=== PATIENT | male | born 1980 | race Caucasian/White ===

== ENCOUNTER 2017-12-04 20:28 | Emergency (ER) | payer SELFPAY ==
[~2017-12-04] VITALS: Ht 177.8 cm; Wt 90.0 kg
[2017-12-04] MEDS ORDERED: AMLO5 PO (20:36)
[2017-12-04] MEDS ORDERED: HYDR25TA5 PO (20:36)
[2017-12-04 20:39] VITALS: BP 150/97; PULSE 70; RESP 24; TEMP 98.1; O2SAT 100
[2017-12-04] MEDS ORDERED: SODIUM CHLOR 0.9% 1000 ML INJ 1,000 ML IV SCH (20:42)
[2017-12-04] MEDS ORDERED: SODIUM CHLORIDE 0.9% FLUSH 10 ML FLUSH IV FLUSH PRN (20:45)
[2017-12-04 20:51] VITALS: RESP 20; O2SAT 98
--- NOTE | 2017-12-04 21:21 | PD ---
HPI Chief Complaint: Medical Clearance Time Seen by Provider: 21:00 Travel History International Travel<30 days: No Contact w/Intl Traveler<30days: No Traveled to known affect area: No History of Present Illness HPI 37-year-old male with PMH of IV methamphetamine abuse, hypertension presents to the ED via EMS for altered mental status. According to EMS report the patient was found lying on his neighbors front step, crying. On presentation the patient complains of shortness of breath, sore throat, and bilateral lower leg pain. He states that his last amphetamine use was this morning. He states that he is unsure of the course of events during the day but states that he has been "walking and walking" all day long. He denies fever, chills, cold or flu symptoms, neck pain, chest pain, abdominal pain, nausea, vomiting. He endorses back pain which he attributes to lying on the ground this afternoon. Denies lower extremity weakness. Denies suicidal ideation. States that he wants to quit using drugs. He is a current smoker. Denies alcohol use. PFSH Past Medical History Arthritis: Yes Diminished Hearing: No Hypertension: Yes (UNDIAGNOSED BUT PT STATES HIS PRESSURE USUALLY RUNS 160S/80- 90S) Immune Disorder: Yes (lupus) Tetanus Vaccination: > 5 Years Influenza Vaccination: No Past Surgical History Cholecystectomy: Yes Social History Alcohol Use: No Tobacco Use: Yes (1pk) Substance Use: Yes (IV HEROIN, IV DILAUDID, OPIATES) Allergies-Medications (Allergen,Severity, Reaction): Coded Allergies: morphine (Unverified Adverse Reaction, Severe, 12/04/17) chest pain Reported Meds & Prescriptions Reported Meds & Active Scripts Active Reported Hydrochlorothiazide 25 Mg Tab 25 Mg PO BID Norvasc (Amlodipine Besylate) 5 Mg Tab 5 Mg PO DAILY Review of Systems Except as stated in HPI: all other systems reviewed are Neg Physical Exam Narrative GENERAL: Well-nourished, well-developed tearful, hyperventilating white male in no acute distress. SKIN: Warm and dry. HEAD: Normocephalic. Atraumatic. EYES: No scleral icterus. No injection or drainage. PERRLA. EOMI. ENT: Pearly watson tympanic membranes bilaterally. Nasal mucosa is moist. Oropharynx without erythema, edema or exudate. Uvula midline. Airway patent. NECK: Supple, trachea midline. No JVD or lymphadenopathy. CARDIOVASCULAR: Regular rate and rhythm without murmurs, gallops, or rubs. RESPIRATORY: Breath sounds clear and equal bilaterally. No accessory muscle use. GASTROINTESTINAL: Abdomen soft, non-tender, nondistended. + Bowel sounds MUSCULOSKELETAL: No cyanosis, or edema. Full, active range of motion. Strength 5/5. Neurovascularly intact. Homans sign negative bilaterally. BACK: Nontender without obvious deformity. No CVA tenderness. Data Data Last Documented VS Vital Signs Date Time Temp Pulse Resp B/P (MAP) Pulse Ox O2 Delivery O2 Flow Rate FiO2 12/04/17 20:51 20 98 Room Air 12/04/17 20:39 98.1 70 150/97 (114) Orders Orders Complete Blood Count With Diff (12/04/17 20:42) Comprehensive Metabolic Panel (12/04/17 20:42) Creatine Kinase (Cpk) (12/04/17 20:42) Urinalysis - C+S If Indicated (12/04/17 20:42) Blood Glucose (12/04/17 20:42) Ecg Monitoring (12/04/17 20:42) Iv Access Insert/Monitor (12/04/17 20:42) Oximetry (12/04/17 20:42) Sodium Chloride 0.9% Flush (Ns Flush) (12/04/17 20:45) Sodium Chlor 0.9% 1000 Ml Inj (Ns 1000 M (12/04/17 20:42) Drug Screen, Random Urine (12/04/17 20:42) Alcohol (Ethanol) (12/04/17 20:42) Electrocardiogram (12/04/17 ) Chest, Single Ap (12/04/17 ) Troponin I (12/04/17 20:47) CKMB (12/04/17 21:44) CKMB% (12/04/17 21:44) Labs Laboratory Tests Test 12/04/17 21:25 12/04/17 21:44 Urine Color LIGHT-YELLOW Urine Turbidity CLEAR Urine pH 6.5 Urine Specific [place] 1.006 Urine Protein NEG mg/dL Urine Glucose (UA) NEG mg/dL Urine Ketones 10 mg/dL Urine Occult Blood NEG Urine Nitrite NEG Urine Bilirubin NEG Urine Urobilinogen LESS THAN 2.0 MG/DL Urine Leukocyte Esterase NEG Urine RBC LESS THAN 1 /hpf Urine WBC LESS THAN 1 /hpf Urine Squamous Epithelial Cells 1 /hpf Urine Mucus FEW /lpf Microscopic Urinalysis Comment CATH-CULT NOT IND Urine Opiates Screen NEG Urine Barbiturates Screen NEG Urine Amphetamines Screen POS Urine Benzodiazepines Screen NEG Urine Cocaine Screen NEG Urine Cannabinoids Screen NEG White Blood Count 9.3 TH/MM3 Red Blood Count 4.62 MIL/MM3 Hemoglobin 13.4 GM/DL Hematocrit 39.7 % Mean Corpuscular Volume 85.9 FL Mean Corpuscular Hemoglobin 29.1 PG Mean Corpuscular Hemoglobin Concent 33.9 % Red Cell Distribution Width 14.0 % Platelet Count 286 TH/MM3 Mean Platelet Volume 8.0 FL Neutrophils (%) (Auto) 67.4 % Lymphocytes (%) (Auto) 22.7 % Monocytes (%) (Auto) 8.2 % Eosinophils (%) (Auto) 0.8 % Basophils (%) (Auto) 0.9 % Neutrophils # (Auto) 6.2 TH/MM3 Lymphocytes # (Auto) 2.1 TH/MM3 Monocytes # (Auto) 0.8 TH/MM3 Eosinophils # (Auto) 0.1 TH/MM3 Basophils # (Auto) 0.1 TH/MM3 CBC Comment DIFF FINAL Differential Comment Blood Urea Nitrogen 6 MG/DL Creatinine 0.73 MG/DL Random Glucose 77 MG/DL Total Protein 7.1 GM/DL Albumin 3.7 GM/DL Calcium Level 9.2 MG/DL Alkaline Phosphatase 49 U/L Aspartate Amino Transf (AST/SGOT) 35 U/L Alanine Aminotransferase (ALT/SGPT) 33 U/L Total Bilirubin 0.7 MG/DL Sodium Level 135 MEQ/L Potassium Level 3.5 MEQ/L Chloride Level 103 MEQ/L Carbon Dioxide Level 23.8 MEQ/L Anion Gap 8 MEQ/L Estimat Glomerular Filtration Rate 120 ML/MIN Total Creatine Kinase 337 U/L Creatine Kinase MB 8.6 NG/ML Creatine Kinase MB % 2.6 % Ethyl Alcohol Level LESS THAN 3 MG/DL [facility] Medical Decision Making Medical Screen Exam Complete: Yes Emergency Medical Condition: Yes Differential Diagnosis Substance-induced mood disorder versus acute substance intoxication versus rhabdomyolysis versus dehydration versus metabolic derangement versus other Narrative Course 37-year-old male with PMH of IV methamphetamine abuse, hypertension presents to the ED via EMS for altered mental status. According to EMS report the patient was found lying on his neighbors front step, crying. On presentation the patient complains of shortness of breath, sore throat, and bilateral lower leg pain. Leg pain 10/10, constant, no alleviating or exacerbating factors. He states that his last amphetamine use was this morning. He states that he is unsure of the course of events during the day but states that he has been "walking and walking." Denies lower extremity weakness. Denies suicidal ideation, psych history. States that he wants to quit using drugs. He is a current smoker. Denies alcohol use. Temp 98.1. Pulse 70, BP 150/97, respiratory rate 24, O2 sats 100% on room air on presentation. Physical exam reveals a tearful, hyperventilating white male, in no acute distress. Pupils equal, round and reactive to light. No appreciable M/R/G. Chest CTAP. Abdomen soft and nontender. Homans sign negative bilaterally. Patient is requesting food and drink. IV was established. Patient was administered 1 L normal saline. EKG rate 70, sinus rhythm. MA interval 149, QRS 95, QTC 1413 ms. Normal axis. No acute ST changes. Reviewed by Dr. Nicolás Hsu. CXR: No acute disease per radiology read. CBC, CMP, UA unremarkable. Mild elevation of the CK-MB, well below rhabdo levels, likely improved with the IV fluids. Tox screen positive for amphetamines. On recheck the patient is sleeping. This is substance-induced mood disorder. Patient instructed to follow-up with the [facility] center for out patient treatment. He is stable and discharged home. Diagnosis Primary Impression: Substance induced mood disorder Referrals: [facility] Patient Instructions: General Instructions, Medical Clearance for Substance Abuse Treatment (ED) Additional Instructions: Rest, hydrate. Follow up with [facility] for outpatient substance abuse treatment. Return to the ED for any urgent or emergent medical condition. Disposition: 01 DISCHARGE HOME Condition: Stable America Kaminski Dec 04, 2017 21:21
--- NOTE | 2017-12-04 21:35 | RADRPT ---
EXAM DATE/TIME: 12/04/2017 21:05 [facility] COMPARISON: CHEST SINGLE AP, April 15, 2011, 16:05. INDICATIONS : Short of breath. MEDICAL HISTORY : None. SURGICAL HISTORY : None. ENCOUNTER: Initial ACUITY: 1 day PAIN SCORE: Non-responsive. LOCATION: Bilateral chest FINDINGS: A single view of the chest demonstrates the lungs to be symmetrically aerated without evidence of mas s, infiltrate or effusion. The cardiomediastinal contours are unremarkable. Osseous structures are intact. CONCLUSION: No acute disease. Rodney Espnioza MD on December 04, 2017 at 21:32 Board Certified Radiologist. This report was verified electronically.
[2017-12-04 21:58] LABS: AUTOMATED NEUTROPHIL # 6.2 TH/MM3 (1.8-7.7); BASOPHIL # 0.1 TH/MM3 (0-0.2); BASOPHIL % 0.9 % (0.0-2.0); EOSINOPHIL # 0.1 TH/MM3 (0-0.4); EOSINOPHIL % 0.8 % (0.0-4.0); HEMATOCRIT 39.7 % (39.0-51.0); HEMOGLOBIN 13.4 GM/DL (13.0-17.0); LYMPH % 22.7 % (9.0-44.0); LYMPHOCYTE # 2.1 TH/MM3 (1.0-4.8); MEAN CELL VOLUME 85.9 FL (80.0-100.0); MEAN CORPUSCULAR HEMOGLOBIN 29.1 PG (27.0-34.0); MEAN CORPUSCULAR HGB CONC 33.9 % (32.0-36.0); MONO % 8.2 % (0.0-8.0); MONOCYTE # 0.8 TH/MM3 (0-0.9); NEUT % 67.4 % (16.0-70.0); PLATELET COUNT 286 TH/MM3 (150-450); RED BLOOD COUNT 4.62 MIL/MM3 (4.50-5.90); WHITE BLOOD COUNT 9.3 TH/MM3 (4.0-11.0)
[2017-12-04 22:01] LABS: BILIRUBIN, URINE NEG (NEG); BLOOD, URINE NEG (NEG); GLUCOSE,URINE NEG (NEG); KETONE, URINE 10 mg/dL (NEG); MUCUS URINE FEW /lpf (OCC); NITRITE,URINE NEG (NEG); PH, URINE 6.5 (5.0-8.5); SQUAMOUS EPITHELIAL CELL URINE 1 /hpf (0-5); URINE COLOR LIGHT-YELLOW (YELLW/STRAW); URINE LEUKOCYTE ESTERASE NEG (NEG)
[2017-12-04 22:11] LABS: ALBUMIN 3.7 GM/DL (3.4-5.0); ALT (GPT) 33 U/L (12-78); AST (GOT) 35 U/L (15-37); BICARBONATE 23.8 MEQ/L (21.0-32.0); BLOOD UREA NITROGEN 6 MG/DL (7-18); CALCIUM 9.2 MG/DL (8.5-10.1); CHLORIDE 103 MEQ/L (98-107); CREATININE 0.73 MG/DL (0.60-1.30); GLOMERULAR FILTRATION RATE 120 ML/MIN (>89); GLUCOSE,RANDOM 77 MG/DL (74-106); SODIUM (NA) 135 MEQ/L (136-145)
[2017-12-04 22:13] LABS: ALKALINE PHOSPHATASE 49 U/L (45-117); TOTAL BILIRUBIN ADULT 0.7 MG/DL (0.2-1.0); TOTAL PROTEIN 7.1 GM/DL (6.4-8.2)
--- NOTE | 2017-12-05 08:14 | EKG ---
Date Performed: 12/04/2017 Time Performed: 20:42:19 PTAGE: 37 years EKG: Sinus rhythm NONSPECIFIC ST & T-WAVE ABNORMALITY BORDERLINE ECG No significant change from prior electrocardiogra m. PREVIOUS TRACING : 09/09/2006 02.37 DOCTOR: Hemant Wong Interpretating Date/Time 12/05/2017 08:13:20
== END 2017-12-04 22:57 | disposition home or self-care (01) ==
LOC: NEPE 20:28
DX: F19.94 Other psychoactive substance use, unspecified with psychoactive substance-induced mood disorder (principal); R06.02 Shortness of breath; I10 Essential (primary) hypertension; Z72.0 Tobacco use; Z79.899 Other long term (current) drug therapy
CPT/HCPCS: 71045; 80053; 80307; 81001; 82550; 82552; 85025; 93005; 96360; 99285; J7030; 84484